=== PATIENT | female | born 1955 | race Caucasian/White ===

== ENCOUNTER → 2019-11-28 | Outpatient (CLI) | payer OTHER ==
[~2019-11-28] MED LIST: ASPIRIN81 M2 PO; DAPSONE25 MG PO; HYDROCHLOROTHIA25 M1 PO; LESCOL XL80 MG PO; NEXIUM40 MG PO; SYNTHROID300 MCG PO; ZOLOFT 50 MG TA50 M1 PO
== END ==
LOC: CAT 10:02
DX: Z13.6 Encounter for screening for cardiovascular disorders (principal); E78.00 Pure hypercholesterolemia, unspecified; I25.10 Atherosclerotic heart disease of native coronary artery without angina pectoris